=== PATIENT | female | born 1960 | race Caucasian/White ===

== ENCOUNTER 2017-08-10 00:05 | Emergency (ER) | payer OTHER ==
[~2017-08-10] VITALS: Ht 167.6 cm; Wt 55.0 kg
[2017-08-10 00:05] VITALS: BP 122/84; PULSE 115; RESP 20; TEMP 101.5; O2SAT 93
[2017-08-10 00:46] VITALS: BP_SYST 123; BP_SYST 124; BP_DIAS 67; BP_DIAS 82; PULSE 115; PULSE 94; RESP 16; RESP 20; TEMP 100.4; TEMP 101.5; O2SAT 95; O2SAT 99
[2017-08-10] MEDS ORDERED: SODIUM CHLOR 0.9% 1000 ML INJ 1,000 ML IV ONE (01:00)
[2017-08-10] MEDS ORDERED: ACETAMINOPHEN 325 MG TAB PO ONE (01:00)
[2017-08-10] MEDS ORDERED: RESP: ALBUTEROL 2.5 MG/IPRATROPIUM 0.5 MG NEB (SCH) NEB ONE (01:00)
--- NOTE | 2017-08-10 01:04 | PD ---
HPI Chief Complaint: Cold / Flu Symptoms Time Seen by Provider: 00:34 Travel History International Travel<30 days: No Contact w/Intl Traveler<30days: No Traveled to known affect area: No History of Present Illness HPI The patient is a 56-year-old female who presents emergency department for cough cold symptoms. The patient states she initially developed cough and cold symptoms 10 days ago, that improved. However, several days ago she started after coughing symptoms again with a productive cough producing yellow sputum, mild nasal congestion, and myalgias. She also complains of mild anterior chest discomfort associated with shortness of breath and cough. She denies any nausea, vomiting, diarrhea, abdominal pain, or dysuria. She does have a history tobacco use, 4-5 cigarettes daily. She denies any known history of COPD and is not oxygen dependent. The patient does not currently have a primary physician. She did not receive an influenza vaccination this year. PFSH Past Medical History Medical History: Denies Significant Hx Diminished Hearing: No Tetanus Vaccination: < 5 Years Influenza Vaccination: No ?: Not LMP: menapause Menopausal: Yes Past Surgical History Tonsillectomy: Yes (T&A) Social History Alcohol Use: No Tobacco Use: Yes Substance Use: No Allergies-Medications (Allergen,Severity, Reaction): Coded Allergies: Sulfa (Sulfonamide Antibiotics) (Verified Allergy, Severe, 08/10/17) hives Review of Systems Except as stated in HPI: all other systems reviewed are Neg General / Constitutional: Positive: Fever HENT: Positive: Congestion Cardiovascular: Positive: Chest Pain or Discomfort Respiratory: Positive: Cough, Shortness of Breath Gastrointestinal: No: Nausea, Vomiting, Diarrhea, Abdominal Pain Genitourinary: No: Dysuria Musculoskeletal: Positive: Myalgias Physical Exam Narrative GENERAL: Awake, alert, pleasant 56 year-old female who appears her stated age and is in no acute respiratory distress. SKIN: Focused skin assessment warm/dry. HEAD: Atraumatic. Normocephalic. EYES: Pupils equal and round. No scleral icterus. No injection or drainage. ENT: No nasal bleeding or discharge. Dry mucous membranes. NECK: Trachea midline. No JVD. CARDIOVASCULAR: Regular, tachycardic with a heart rate of 101. RESPIRATORY: No accessory muscle use. Few scattered rhonchi. GASTROINTESTINAL: Abdomen soft, non-tender, nondistended. No rebound tenderness. MUSCULOSKELETAL: No obvious deformities. No clubbing. No cyanosis. No edema. NEUROLOGICAL: Awake and alert. No obvious cranial nerve deficits. Motor grossly within normal limits. Normal speech. PSYCHIATRIC: Appropriate mood and affect; insight and judgment normal. Data Data Last Documented VS Vital Signs Date Time Temp Pulse Resp B/P (MAP) Pulse Ox O2 Delivery O2 Flow Rate FiO2 08/10/17 01:51 100 21 08/10/17 01:08 Room Air 08/10/17 00:46 100.4 94 20 123/67 (85) Orders Orders Chest, Single Ap (08/10/17 ) Influenzae A/B Antigen (08/10/17 00:54) Albuterol-Ipratropium Neb (Duoneb Neb) (08/10/17 01:00) Sodium Chlor 0.9% 1000 Ml Inj (Ns 1000 M (08/10/17 01:00) Acetaminophen (Tylenol) (08/10/17 01:00) MDM Medical Decision Making Medical Screen Exam Complete: Yes Emergency Medical Condition: Yes Medical Record Reviewed: Yes Interpretation(s) Last Impressions Chest X-Ray 08/10/17 0000 Signed Impressions: Service Date/Time: August 01:01 - CONCLUSION: 1. Minimal right basilar atelectasis or scarring. Exam otherwise unremarkable. Valentino Dumont MD Date/Time Source Procedure Growth Status 08/10/17 01:10 Nasal Aspirate Influenza Types A,B Antigen ([facility]) - Final NEGATIVE FOR FLU A AND B ANTIGEN.... Complete Differential Diagnosis Differential diagnosis includes bronchitis, pneumonia, influenza, viral syndrome , upper respiratory infection. Narrative Course IV was established and the patient was placed on cardiac telemetry monitoring and continuous pulse oximetry monitoring. The patient was administered 1 L of IV fluids and a DuoNeb. Chest x-ray was obtained. Influenza screen was sent to lab. Chest x-ray reveals atelectasis, otherwise unremarkable. Influenza screen is negative. The patient was reevaluated at 2 AM, her symptoms had improved. The patient has bronchitis and will be treated with prednisone, Zithromax, and an albuterol inhaler. The patient is advised to follow-up with a primary physician and return if symptoms worsen or progress. Diagnosis Primary Impression: Bronchitis Patient Instructions: General Instructions Additional Instructions: Please provide the patient a copy of her flu results and x-ray results at discharge. Medications as directed. Stop smoking. Follow-up with a primary physician. Return if symptoms worsen or progress. Med/Other Pt SpecificInfo: Prescription(s) given Scripts Albuterol 18 GM Inh (Ventolin Hfa 18 GM Inh) 90 Mcg/Act Aer 2 PUFF INH Q4H Y for SHORTNESS OF BREATH, #1 INHALER 0 Refills Prov: Ricardo Mcgregor MD 08/10/17 Azithromycin (Zithromax Z-Óscar) 250 Mg Dspk 250 MG PO DIRECTED for Infection, #1 DSPK 0 Refills 500 MG (2 tabs) day 1, then 1 tab days 2-5. Prov: Ricardo Mcgregor MD 08/10/17 Prednisone (Prednisone) 20 Mg Tab 40 MG PO DIRECTED for 5 Days, TAB 0 Refills Prov: Ricardo Mcgregor MD 08/10/17 Disposition: 01 DISCHARGE HOME Condition: Stable Ricardo Mcgregor MD Aug 10, 2017 01:04
--- NOTE | 2017-08-10 01:26 | RADRPT ---
EXAM DATE/TIME: 08/10/2017 01:01 [facility] COMPARISON: No previous studies available for comparison. INDICATIONS : Productive cough. Fever. MEDICAL HISTORY : None. SURGICAL HISTORY : None. ENCOUNTER: Initial ACUITY: 1 week PAIN SCORE: 0/10 LOCATION: Bilateral chest FINDINGS: A single view of the chest demonstrates minimal basilar atelectasis. No dense consolidation. No effus ion. No pneumothorax. Heart size within normal limits. CONCLUSION: 1. Minimal right basilar atelectasis or scarring. Exam otherwise unremarkable. Valentino Dumont MD on August 10, 2017 at 1:22 Board Certified Radiologist. This report was verified electronically.
[2017-08-10 01:51] VITALS: O2SAT 100
[2017-08-10] MEDS ORDERED: VENTAER INH (02:08)
[2017-08-10] MEDS ORDERED: ZITHTAB PO (02:08)
[2017-08-10] MEDS ORDERED: PRED20 PO (02:08)
== END 2017-08-10 02:49 | disposition home or self-care (01) ==
LOC: NEPE 00:05
DX: J40 Bronchitis, not specified as acute or chronic (principal); F17.210 Nicotine dependence, cigarettes, uncomplicated; Z88.2 Allergy status to sulfonamides
CPT/HCPCS: 71045; 87804; 94664; 96360; 99284; J7030